=== PATIENT | male | born 1940 | race Caucasian/White ===

== ENCOUNTER 2016-05-04 20:05 | Emergency (ER) | payer MEDICARE, OTHER ==
[2016-05-04 23:44] LABS: HEMOGLOBIN 14.5 gm/dl (14.0-17.5); RED BLOOD COUNT 4.61 M/UL (4.20-5.50); WHITE BLOOD COUNT 14.3 K/UL (4.5-11.0)
[2016-05-05 00:08] LABS: BUN/CREATININE RATIO 10 (0-10)
== END 2016-05-05 01:15 | disposition home or self-care (01) ==
LOC: ER1 20:05
PROVIDERS: Family Medicine
DX: S16.1XXA Strain of muscle, fascia and tendon at neck level, initial encounter (principal); R53.1 Weakness; J44.9 Chronic obstructive pulmonary disease, unspecified; G25.81 Restless legs syndrome; Z79.02 Long term (current) use of antithrombotics/antiplatelets; Z79.899 Other long term (current) drug therapy; Z87.891 Personal history of nicotine dependence; X58.XXXA Exposure to other specified factors, initial encounter
CPT/HCPCS: 36415; 70450; 72125; 80053; 82550; 82553; 83874; 84484; 85025; 99284

== ENCOUNTER → 2016-05-10 | Outpatient (CLI) | payer MEDICARE, OTHER | LOC: KOH-I 14:39 | DX: R55 Syncope and collapse (principal); R42 Dizziness and giddiness; M53.82 Other specified dorsopathies, cervical region; I65.23 Occlusion and stenosis of bilateral carotid arteries | CPT/HCPCS: 93880 ==

== ENCOUNTER → 2016-05-16 | Outpatient (CLI) | payer MEDICARE, OTHER | LOC: EMI 08:14 → US 08:15 → EMI 08:15 | DX: R41.3 Other amnesia (principal); R90.89 Other abnormal findings on diagnostic imaging of central nervous system | CPT/HCPCS: 70551 ==

== ENCOUNTER → 2016-06-10 | Outpatient (CLI) | payer MEDICARE, OTHER | LOC: CARD REHAB 05-27 10:00 | DX: I21.4 Non-ST elevation (NSTEMI) myocardial infarction (principal) ==

== ENCOUNTER → 2016-08-08 | Outpatient (CLI) | payer MEDICARE, OTHER ==
[2016-08-08 12:15] LABS: HEMOGLOBIN 15.3 gm/dl (14.0-17.5); RED BLOOD COUNT 4.71 M/UL (4.20-5.50)
== END ==
LOC: OPSV 11:21
PROVIDERS: Nurse Practitioner
DX: R07.9 Chest pain, unspecified (principal); N39.0 Urinary tract infection, site not specified; R50.9 Fever, unspecified; R06.02 Shortness of breath; E86.0 Dehydration
CPT/HCPCS: 36415; 80053; 82550; 82553; 84484; 85025; 85379; 96360; J7030

== ENCOUNTER → 2016-08-09 | Outpatient (CLI) | payer MEDICARE, OTHER | LOC: KOH-I 10:42 | DX: R04.2 Hemoptysis (principal); R91.8 Other nonspecific abnormal finding of lung field | CPT/HCPCS: 71020 ==

== ENCOUNTER 2021-09-27 14:21 | Inpatient (IN) | payer MEDICARE, OTHER ==
[~2021-09-27] VITALS: Ht 167.6 cm; Wt 74.4 kg
[2021-09-27 15:53] LABS: HEMOGLOBIN 12.5 gm/dl (14.0-17.5); RED BLOOD COUNT 4.42 M/UL (4.20-5.50); WHITE BLOOD COUNT 9.4 K/UL (4.5-11.0)
[2021-09-27 16:16] LABS: BUN/CREATININE RATIO 11 (0-10)
[2021-09-27] MEDS ORDERED: DONEPEZIL HCL10 MG PO (17:37)
[2021-09-27] MEDS ORDERED: PACERONE200 MG PO (17:37)
[2021-09-27] MEDS ORDERED: ISOSORBIDE MONO30 MG PO (17:38)
[2021-09-27] MEDS ORDERED: TRAMADOL HCL50 MG PO (17:38)
[2021-09-27] MEDS ORDERED: POTASSIUM CHLO20 ME2 PO (17:39)
[2021-09-27] MEDS ORDERED: BETHANECHOL CHL25 MG PO (17:39)
[2021-09-27] MEDS ORDERED: CRESTOR20 MG PO (17:40)
[2021-09-27] MEDS ORDERED: PROTONIX 40 MG40 M1 PO (17:40)
[2021-09-27] MEDS ORDERED: ASPIRIN EC81 MG PO (17:41)
[2021-09-28 06:25] LABS: HEMOGLOBIN 11.7 gm/dl (14.0-17.5); RED BLOOD COUNT 4.05 M/UL (4.20-5.50); WHITE BLOOD COUNT 5.6 K/UL (4.5-11.0)
[2021-09-28 06:58] LABS: BUN/CREATININE RATIO 14 (0-10)
[2021-09-29 04:20] LABS: HEMOGLOBIN 12.4 gm/dl (14.0-17.5); RED BLOOD COUNT 4.27 M/UL (4.20-5.50)
[2021-09-29 04:21] LABS: WHITE BLOOD COUNT 8.8 K/UL (4.5-11.0)
[2021-09-30 02:30] LABS: RED BLOOD COUNT 4.55 M/UL (4.20-5.50); WHITE BLOOD COUNT 9.4 K/UL (4.5-11.0)
[2021-10-01 02:45] LABS: HEMOGLOBIN 14.1 gm/dl (14.0-17.5); RED BLOOD COUNT 4.9 M/UL (4.20-5.50); WHITE BLOOD COUNT 11.6 K/UL (4.5-11.0)
[2021-10-01] MEDS ORDERED: PACERONE200 MG PO (13:05)
[2021-10-01] MEDS ORDERED: AMOX TR-K CLV1 EAC4 PO (13:05)
[2021-10-01] MEDS ORDERED: CLOPIDOGREL75 MG PO (13:05)
[2021-10-01] MEDS ORDERED: XARELTO20 MG PO (13:05)
[2021-10-01] MEDS ORDERED: AMIODARONE HCL400 MG PO (13:09)
[2021-10-01] MEDS ORDERED: BUMETANIDE1 MG PO (13:10)
== END 2021-10-01 14:53 | disposition home health service (06) | DRG 193 ==
LOC: ER1 14:21 → M/S 17:03 → CDU 17:03 → M/S 18:56 → PROG CARE 09-30 12:45
PROVIDERS: Family Medicine; Internal Medicine; ADMIT Family Medicine
PROC: B24BZZZ Ultrasonography of Heart with Aorta (ICD-10-PCS; principal; 2021-09-28)
DX: J18.9 Pneumonia, unspecified organism (principal); G93.41 Metabolic encephalopathy; I50.33 Acute on chronic diastolic (congestive) heart failure; Z20.822 Contact with and (suspected) exposure to COVID-19; Z66 Do not resuscitate; J96.21 Acute and chronic respiratory failure with hypoxia; I11.0 Hypertensive heart disease with heart failure; D64.9 Anemia, unspecified; K21.9 Gastro-esophageal reflux disease without esophagitis; G89.29 Other chronic pain; M54.9 Dorsalgia, unspecified; I08.3 Combined rheumatic disorders of mitral, aortic and tricuspid valves; I27.20 Pulmonary hypertension, unspecified; J44.9 Chronic obstructive pulmonary disease, unspecified; F17.210 Nicotine dependence, cigarettes, uncomplicated; R91.1 Solitary pulmonary nodule; E66.01 Morbid (severe) obesity due to excess calories; I48.91 Unspecified atrial fibrillation; I25.10 Atherosclerotic heart disease of native coronary artery without angina pectoris; F03.90 Unspecified dementia, unspecified severity, without behavioral disturbance, psychotic disturbance, mood disturbance, and anxiety; Z79.01 Long term (current) use of anticoagulants; Z95.5 Presence of coronary angioplasty implant and graft; Z99.81 Dependence on supplemental oxygen; Z87.01 Personal history of pneumonia (recurrent); Z79.82 Long term (current) use of aspirin; Z68.26 Body mass index [BMI] 26.0-26.9, adult
CPT/HCPCS: ECHO; 36415; 36600; 71045; 80048; 80053; 80061; 81001; 82550; 82553; 82803; 83036; 83735; 83880; 84132; 84484; 85025; 85610; 93005; 93306; 94640; 94664; 94760; 96374; 96375; 96376; 99285; J0696; J1650; J1940; J2405; J2930; J7070; Q9967; U0002